=== PATIENT | female | born 1935 | race Caucasian/White ===

== ENCOUNTER 2016-11-14 22:05 | Inpatient (IN) | payer MEDICARE, OTHER ==
--- NOTE | ~2016-11-14 | DS ---
Discharge Summary [facility] [address] [place]. [address] NAME: HIEN DYER : 39 STATUS : DIS IN PAT#: [id number] AGE: 81 ADM/REG DATE : 11/15/16 MR#: [id number] REPORT SERV DATE: 11/17/16 DICTATED BY: JR. ARTEAGA WILLIAM JOHN DATE: 11/16/16 REPORT STATUS : Draft TRANSCRIBED BY: MODSoraida DATE: 11/16/16 ADMISSION DATE: 11/15/2016 DISCHARGE DATE: 11/16/2016 DISCHARGE DIAGNOSES: 1. Encephalopathy, secondary to urinary tract infection. 2. Gram-positive cocci, urinary tract infection. 3. Hypokalemia. 4. 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 5. Vascular dementia. 6. Hypertension which is poorly controlled. 7. Hypokalemia. OPERATIONS, PROCEDURES, AND TREATMENTS: 1. Urine culture which is growing gram-positive cocci. Presently, patient has a long history of Enterococcus in the past. 2. sensitive to Levaquin. 3. Chest x-ray without infiltrate. 4. CT of the brain done 11/14 which showed no acute stroke or other acute intracranial pathology. Although an acute deep white matter infarct could be obscured by chronic microvascular ischemic changes. Stable to mild advanced diffuse cerebral involutional changes. There was old stroke in the left basal ganglia. DISCHARGE MEDICATIONS: 1. Aspirin 81 mg orally daily. 2. Voltaren cream 4 times a day as needed. 3. Bumex 0.5 mg every morning. 4. Coreg 25 b.i.d. 5. Vitamin B12 1000 mcg IM every month. 6. Ferrous sulfate 325 mg orally twice a day. 7. Folate 1 mg orally daily. 8. Lactulose 60 mL twice a day. 9. Synthroid 150 mcg orally daily. 10.Losartan 50 mg orally twice a day. 11.Protonix 40 mg orally daily. 12.Paxil 40 mg orally daily. 13.Potassium chloride 20 mEq twice a day. 14.Levaquin 750 mg orally daily for 4 days. 15.Norvasc 10 mg orally daily. HOSPITAL COURSE: The patient is a 81-year-old white female who presented to [facility] Emergency Room on 11/15 with altered mental status and sedation. The patient resides at [facility]. She was visited by her daughter found to be very difficult to awaken. Eventually EMS was summoned. The patient was transported to [facility] Emergency Room. She had recently been diagnosed with hepatic encephalopathy due to ammonia of 94 diagnosed 11/02/2016 when she arrived to the emergency room. At this time, Discharge Summary [facility] [address] [facility] [place]. [address] NAME: HIEN DYER : 37 STATUS : DIS IN PAT#: [id number] AGE: 81 ADM/REG DATE : 11/15/16 MR#: [id number] REPORT SERV DATE: 11/17/16 DICTATED BY: JR. ARTEAGA WILLIAM JOHN DATE: 11/16/16 REPORT STATUS : Draft TRANSCRIBED BY: ANGELICA DATE: 11/16/16 her ammonia level was 62. In addition, the patient was found to have a urinary tract infection. For complete details of the admission history, physical, and presenting data please see Dr. Rodriguez's excellent dictated history and physical. The patient was admitted to the Clinical Decision Unit for further monitoring. Her mental status cleared quite quickly. The patient does have vascular dimension, somewhat altered at baseline. Her Wallace catheter was discontinued. Urine cultures have grown gram-positive cocci. It has been responsive to Levaquin. Therefore, we will continue the patient for a total 7 day course of Levaquin. The role of elevated ammonia in this encephalopathy is unclear to me. To my knowledge, there is not a good correlation between ammonia level and levels of consciousness. Therefore, I tend to believe the majority of the mental status changes due to urinary tract infection. In addition, the patient had hypokalemia which has been replaced, history of vascular dementia, history of chronic systolic heart failure with ejection fraction of 30-35% and hypertension which is poorly controlled. I did add Norvasc to her regimen as well as scheduled potassium. For discharge exam and laboratory, please see daily progress note. DISCHARGE DIET: Regular. ACTIVITY: As tolerated. This discharge took greater than 30 minutes for patient encounter, coordination of care, and documentation. ESTER/ANGELICA Lobo Arteaga Jr, MD / [id number] CC: Lobo Arteaga Jr, MD Gregory J. Nieckula, DO
--- NOTE | ~2016-11-14 | HP ---
History And Physical [facility] [address] [place]. [address] NAME: HIEN BECKFORD : 39 STATUS : ADM Kym PAT#: [id number] AGE: 81 ADM/REG DATE : 11/15/16 MR#: [id number] REPORT SERV DATE: 11/15/16 DICTATED BY: COLIN RODRÍGUEZ DATE: 11/14/16 REPORT STATUS : Draft TRANSCRIBED BY: MODL DATE: 11/14/16 DATE OF ADMISSION: 11/15/2016 POINT OF ENTRY: [facility] Emergency Department. CHIEF COMPLAINT: Altered mental status and sedation. HISTORY OF PRESENT ILLNESS: Ms Beckford is a 81-year-old female with history of chronic systolic congestive heart failure, ejection fraction of 35%, hypothyroidism, hypertension, as well as vascular dementia, who was brought to the emergency room today for reports of sedation, lethargy, and altered mental status. Majority of history is obtained from the patient's daughter who is at bedside. She states that when she saw the patient yesterday she was acting normally without any concerns. When she visited [facility] today, at approximately 4 p.m. she found her mother sleeping very soundly and very difficult to wake up. She first thought it was because she had physical therapy earlier in the day, but when she was informed that the patient has not had physical therapy, she became concerned. Repeated attempts to wake up her mother were unsuccessful and the EMS was activated. Upon EMS arrival, the patient started to slowly wake up and at that time was noted to be somewhat confused as well. The patient recently was diagnosed with an elevated ammonia level of 94 on 11/02/2016 through [facility] and started on lactulose. At that time family states that her symptoms mainly were confusion rather than sedation and lethargy, and this confusion has seemed to improve somewhat while on the lactulose therapy. Daughter also states a recent urinary tract infection and was placed on ciprofloxacin also about two weeks ago. Initial evaluation in the emergency department remarkable for ammonia level of 62. She does have a recurrent urinary tract infection. Although, labs were otherwise unremarkable including an ABG. CT scan of the brain was also unremarkable for any acute changes. She was subsequently to the Hospitalist Service for further evaluation and management. REVIEW OF SYSTEMS: Comprehensive review of systems otherwise negative unless listed in history of present illness. PREVIOUS MEDICAL HISTORY: 1. Chronic systolic congestive heart failure with ejection fraction of 35%. 2. Hypothyroidism. 3. Hypertension. 4. Gastroesophageal reflux disease. 5. Coronary artery disease. 6. Depression. 7. Prior history of cerebrovascular accident. 8. Vascular dementia. 9. Gout. History And Physical [place] [address] [place]. [address] NAME: HIEN BECKFORD : 39 STATUS : ADM Kym PAT#: [id number] AGE: 81 ADM/REG DATE : 11/15/16 MR#: [id number] REPORT SERV DATE: 11/15/16 DICTATED BY: COLIN RODRÍGUEZ DATE: 11/14/16 REPORT STATUS : Draft TRANSCRIBED BY: ANGELICA DATE: 11/14/16 10.Degenerative disk disease and osteoarthritis. 11.History of mesenteric ischemia requiring colectomy and colostomy with recent reversal. 12.History of right breast cancer, status post lumpectomy. 13.Prior episodes of hepatic encephalopathy of unclear etiology. 14.History of hyponatremia. SURGICAL HISTORY: 1. Colectomy with colostomy and subsequent reversal. 2. Right breast lumpectomy. 3. Back surgery. 4. Cholecystectomy. ALLERGIES: NO KNOWN DRUG ALLERGIES. HOME MEDICATIONS: 1. Tylenol 650 mg q.4 hours p.r.n. 2. Aspirin 81 mg daily. 3. Bumex 0.5 mg daily. 4. Carvedilol 25 mg b.i.d. 5. Vitamin B12 1000 mcg monthly. 6. Voltaren topical gel q.i.d. p.r.n. 7. Colace 100 mg b.i.d. 8. Ferrous sulfate 325 mg b.i.d. 9. Folic acid 1 mg daily. 10.Lactulose 40 g b.i.d. 11.Levothyroxine 150 mcg daily. 12.Losartan 50 mg b.i.d. 13.Namenda 5 mg b.i.d. this was started on 11/09/2016. 14.Zofran 4 mg q.4 hours p.r.n. 15.Protonix 40 mg daily. 16.Paxil 40 mg daily. 17.Potassium chloride 20 mEq daily. 18.Tramadol 50 mg q.6 hours p.r.n. SOCIAL HISTORY: Denies any tobacco, alcohol, or illicits. She is , now a resident of [facility]. FAMILY MEDICAL HISTORY: Significant for cancer and cerebrovascular accident. LABS AND IMAGIN. White count is 7.3, hemoglobin is 12.5, hematocrit is 39.4, and platelet count is 256. INR is 1.3. 2. Sodium is 137, potassium 2.9, chloride 94, carbon dioxide 31, BUN 8, creatinine 0.87, glucose is 103, calcium 8.4, magnesium 1.8, protein 6.7, albumin 3.1, bilirubin is 1.0, ALT 25, AST 21, alkaline phosphatase is 110. 3. Troponin less than 0.02. 4. Ammonia 62. History And Physical [address] [address] NAME: HIEN BECKFORD : 39 STATUS : ADM Kym PAT#: [id number] AGE: 81 ADM/REG DATE : 11/15/16 MR#: [id number] REPORT SERV DATE: 11/15/16 DICTATED BY: COLIN RODRÍGUEZ DATE: 11/14/16 REPORT STATUS : Draft TRANSCRIBED BY: ANGELICA DATE: 11/14/16 5. Urinalysis; specific gravity is 1.008, hazy with large leukocyte esterase, 164 red blood cells with greater than 182 white blood cells per high-powered field with many white blood cell clumps. 6. ABG; pH is 7.46, pCO2 is 43, PO2 is 77, bicarb is 30, and saturating 96% on room air. 7. CT scan of brain shows no acute cerebrovascular accident, shows stable moderate to advanced diffuse cerebral involutional changes as well as deep white matter changes as well as evidence of a stable old cerebrovascular accident. 8. EKG per my review shows septal Q-waves with normal sinus rhythm, no evidence of any acute ischemia or infarction. PHYSICAL EXAMINATION: VITAL SIGNS: Temperature is 99 degrees Fahrenheit, pulse is 86, respirations 22, saturating 96% on room air, and blood pressure 164/77. GENERAL: The patient is awake and alert, in no acute distress. Resting comfortably in bed. She is a well-developed, well-nourished, elderly female. Daughter is at bedside. HEENT: Atraumatic and normocephalic. Slightly dry mucous membranes. Pupils are equal, round, reactive to light and accommodation. Extraocular eye movements intact. No scleral icterus. NECK: No jugular venous distention. No carotid bruits. CARDIAC: Regular rate and rhythm. No murmurs or gallops. Normal S1, S2. LUNGS: Clear to auscultation bilaterally. No wheezes, rhonchi, or crackles. ABDOMEN: Soft, nontender, and nondistended with good bowel sounds. No rebound, guarding, or rigidity. EXTREMITIES: Warm and well perfused with no cyanosis, clubbing, or edema. SKIN: Warm and dry. PSYCH: Affect is appropriate. NEURO: Alert and oriented x3. Cranial nerves 2 through 12 are grossly intact. Speech is normal. Gait is not assessed. ASSESSMENT AND PLAN: Ms. Beckford is a 81-year-old female, who is brought to the ER today for acute episode of severe sedation and lethargy as well as confusion and found to have evidence of hepatic encephalopathy as well as urinary tract infection. PROBLEM LIST: 1. Hepatic encephalopathy. 2. Urinary tract infection. 3. Sedation and lethargy. 4. Hypokalemia. 5. History of chronic systolic congestive heart failure. 6. History of vascular dementia. Recently placed on Namenda. PLAN: 1. Hepatic encephalopathy. We will dose increase her lactulose in an attempt to improve her ammonia level which seems to have improved from 94 about two weeks ago. Unclear as to why she has recurrent episodes of hepatic encephalopathy as repeated abdominal imaging within just the last [address] scan of the abdomen and pelvis as well as hepatic echocardiogram have been unremarkable for evidence of any kind of liver History And Physical [address] [address] NAME: HIEN BECKFORD : 39 STATUS : ADM Kym PAT#: [id number] AGE: 81 ADM/REG DATE : 11/15/16 MR#: [id number] REPORT SERV DATE: 11/15/16 DICTATED BY: COLIN RODRÍGUEZ DATE: 11/14/16 REPORT STATUS : Draft TRANSCRIBED BY: MODSoraida DATE: 11/14/16 disease and a viral hepatitis panel done a few months ago was also unremarkable. 2. Urinary tract infection. We will place the patient on Levaquin as she has grown Enterococcus faecalis as well as Klebsiella pneumonia in the past. Follow up urine culture. 3. Sedation, lethargy, and confusion likely secondary to hepatic encephalopathy and urinary tract infection. However, we also will hold her Namenda which was recently started as confusion and sedation or a potential side effect. Also checking urine drug screen, vitamin B12 level as well as thyroid function studies. CT of the brain was unremarkable as was ABG. 4. Hypokalemia. The patient received 40 of potassium chloride here in the emergency department. We will continue patient's home potassium chloride as well as place the patient on electrolyte replacement protocol. 5. History of chronic systolic congestive heart failure, ejection fraction of 35%. The patient currently appears euvolemic to maybe slightly dry at this time. We will check a chest x-ray as well as BNP level. We will continue her Bumex at this time. 6. Vascular dementia. The patient recently diagnosed with vascular dementia and started on Namenda approximately five or six days ago given its potential side effects of sedation and confusion, we will hold this at least overnight and observe for improvement. 7. DVT prophylaxis. Lovenox subcutaneous. CODE STATUS: The patient wished to be full code. JCB/MODL Colin Rodríguez MD / [id number] CC: Lobo Arteaga Jr, MD Gregory J. Nieckula, DO
[2016-11-14 21:09] LABS: BE (BASE EXCESS) 5.6 MEQ/L (0 +/- 2.5); INSTRUMENT SERIAL # 8087; PCO2 (CO2 TENSION) 43 MMHG (35-45); PO2 (O2 TENSION) 77 MMHG (79-93); pH 7.46 (7.37-7.43)
[2016-11-14 21:10] LABS: ALLENS TEST Pos; CARBOXYHEMOGLOBIN 1.8 % (0-3); HEMOBLOGIN CONTENT 13.2 G/DL (12-16); METHEMOGLOBIN 0.3 % (0-3); O2 CONTENT 17.5 VOL% (18-24); OPERATOR ID 17589; SAMPLE Arterial
[2016-11-14 21:31] LABS: BASOPHILS ABSOLUTE 0.07 10/3/uL (0.0-0.16); EOSINOPHILS 5.2 %; EOSINOPHILS ABSOLUTE 0.38 10/3/uL (0.0-0.53); ER CBC TAT 0 Hrs 00 Mins; HEMATOCRIT 39.4 % (36.0-48.0); HEMOGLOBIN 12.5 g/dL (12.0-16.0); IMMATURE GRANULOCYTES 0.1 %; IMMATURE GRANULOCYTES ABSOLUTE 0.01 10/3/uL (0.0-0.11); LYMPHOCYTES 20.6 %; LYMPHOCYTES ABSOLUTE 1.51 10/3/uL (0.67-4.30); MEAN CORPUS HGB CONC 31.7 g/dL (32.0-36.0); MEAN CORPUSCULAR HEMOGLOB 26.1 pg (26.0-34.0); MEAN CORPUSCULAR VOLUME 82.3 fL (80-100); MEAN PLATELET VOLUME 8.5 fL (9.2-13.0); MONOCYTES 7.8 %; MONOCYTES ABSOLUTE 0.57 10/3/uL (0.21-1.20); NEUTROPHILS 65.3 %; PLATELET COUNT 256 10/3/uL (150-400); RBC DISTRIBUTION WIDTH 20.1 % (12.0-16.0); RED CELL COUNT 4.79 10/6/uL (4.0-5.6); WHITE BLOOD CELLS 7.3 10/3/uL (4.5-10.5)
[2016-11-14 21:34] LABS: MANUAL DIFF NO %
[2016-11-14 21:50] LABS: ALBUMIN 3.1 G/DL (3.5-5.0); CALCIUM, SERUM 8.4 MG/DL (8.5-10.4); CHEST PAIN PROFILE TAT 0 Hrs 00 Mins; CHLORIDE, SERUM 94 MMOL/L (96-112); CO2 (CARBON DIOXIDE) 31 MMOL/L (24-34); CREATININE 0.87 MG/DL (0.55-1.02); DIRECT BILIRUBIN 0.4 MG/DL (0.0-0.4); GFR AFRICAN AMERICAN 73 ML/MIN (>=60); GFR NON AFRICAN AMERICAN 63 ML/MIN (>=60); GLUCOSE, SERUM 103 MG/DL (60-99); INDIRECT BILIRUBIN(NOT ORDER) 0.6 MG/DL (0.1-0.9); SGOT(AST) 21 U/L (5-40); SGPT(ALT) 25 U/L (5-65); SODIUM, SERUM 137 MMOL/L (135-148); TOTAL PROTEIN 6.7 G/DL (6.0-8.5); TROPONIN I <0.02 NG/ML (<0.05)
[2016-11-14 22:00] LABS: ALKALINE PHOSPHATASE 110 U/L (45-117); BUN (BLOOD UREA NITROGEN) 8 MG/DL (6-23); POTASSIUM, SERUM 2.9 MMOL/L (3.5-5.3)
[~2016-11-14 22:05] MED LIST: AKWA TEARS OPH; ALEVE220 MG PO; ASA5GR PO; ASAB PO; ATEN50 PO; ATV.5 PO; B121000P IM; BENICAR20 PO; BENICAR40 PO; BUM1 PO; BUM5 PO; CARVEDILOL PO; COMBIVENT RESPIM4 GM INH; CONSTULOSE PO; COREG12 PO; COREG25 PO; DIL2TAB PO; EZFE 200200 MG PO; FEMARA PO; FERRETTS325 MG PO; FLONASE NAS; FOLIC PO; HYDROCHLOROT25 MG PO; KCL20UDL PO; KLONO5 PO; KLOR-CON M2020 MEQ PO; L20 PO; LEVOTHYROXIN100 MCG PO; LEVOTHYROXIN125 MCG PO; LISINOPRIL40 MG PO; MACROBID PO; METHOC500B PO; NATURAL POTASSIUM PO; NORCO1 TA1 PO; NORV10 PO; NORV25 PO; OXYCOD PO; PAX10 PO; PAX20 PO; PAXIL40 MG PO; POTASSIUM PO; POTASSIUM95 MG PO; PROAIR HFA INH; PROTONIX PO; PULRESP1 INH; REFRESH OPH SO0.3 ML OPH; SINGULAIR1 PO; SPIRO25 PO; STERAPDS12; STERAPRED5 MG; SYN1 PO; SYN112 PO; SYN125 PO; TENORETIC1 TAB PO; THERGRANM PO; ULTRACET PO; ULTRAM50 PO; XIFAXAN550 MG PO; Z-PAK PO; ZOFRAN4 PO
[2016-11-14 22:35] LABS: INTERNATIONAL NORMAL RATI 1.3 UNITS (-); PARTIAL THROMBO TIME 29.6 SEC (22.5-37.2); PROTIME (NOT ORD) 16.2 SEC (12.0-14.5)
[2016-11-14 22:47] LABS: ASCORBIC ACID (UR NOT ORDER) NEG (NEG); BILIRUBIN, URINE NEGATIVE (NEG); ER URINALYSIS TAT 0 Hrs 10 Mins; KETONE, URINE NEGATIVE (NEG); LEUKOCYTE ESTERASE(NOT OR LARGE (NEG); NITRITE (URINE) NEG (NEG)
[2016-11-14 22:48] LABS: WBC (NOT ORDERED) (RFLEX) > 182 (0-5)
[2016-11-14] MEDS ORDERED: PROTONIX PO (23:02)
[2016-11-14] MEDS ORDERED: FOLIC PO (23:02)
[2016-11-14] MEDS ORDERED: COREG25 PO (23:03)
[2016-11-14] MEDS ORDERED: BUM5 PO (23:03)
[2016-11-14] MEDS ORDERED: COZ50 PO (23:08)
[2016-11-14] MEDS ORDERED: PAXIL40 MG PO (23:09)
[2016-11-14] MEDS ORDERED: B121000P IM (23:09)
[2016-11-14] MEDS ORDERED: KDUR20 PO (23:10)
[2016-11-14] MEDS ORDERED: FERROUS SULF325 M1 PO (23:10)
[2016-11-14] MEDS ORDERED: SYN.15 PO (23:10)
[2016-11-14] MEDS ORDERED: ASAB PO ×2 (23:11→23:12)
[2016-11-14] MEDS ORDERED: VOLTAREN1 % TOP (23:11)
[2016-11-14] MEDS ORDERED: T PO (23:11)
[2016-11-14] MEDS ORDERED: DSS PO (23:12)
[2016-11-14] MEDS ORDERED: ULTRAM50 PO (23:13)
[2016-11-14] MEDS ORDERED: NAMENDA5 PO ×2 (23:13→23:14)
[2016-11-14] MEDS ORDERED: ZOFRAN4 PO (23:13)
[2016-11-14] MEDS ORDERED: CONSTULOSE PO (23:14)
[2016-11-15 05:42] LABS: BASOPHILS ABSOLUTE 0.09 10/3/uL (0.0-0.16); EOSINOPHILS ABSOLUTE 0.35 10/3/uL (0.0-0.53); HEMATOCRIT 41.6 % (36.0-48.0); HEMOGLOBIN 13.1 g/dL (12.0-16.0); IMMATURE GRANULOCYTES 0.1 %; IMMATURE GRANULOCYTES ABSOLUTE 0.01 10/3/uL (0.0-0.11); LYMPHOCYTES 17.3 %; LYMPHOCYTES ABSOLUTE 1.51 10/3/uL (0.67-4.30); MEAN CORPUS HGB CONC 31.5 g/dL (32.0-36.0); MEAN CORPUSCULAR HEMOGLOB 26.5 pg (26.0-34.0); MEAN PLATELET VOLUME 9.1 fL (9.2-13.0); MONOCYTES 8.7 %; MONOCYTES ABSOLUTE 0.76 10/3/uL (0.21-1.20); NEUTROPHILS 68.9 %; NEUTROPHILS ABSOLUTE 6.01 10/3/uL (2.02-8.40); PLATELET COUNT 271 10/3/uL (150-400); RBC DISTRIBUTION WIDTH 19.9 % (12.0-16.0); RED CELL COUNT 4.95 10/6/uL (4.0-5.6); WHITE BLOOD CELLS 8.7 10/3/uL (4.5-10.5)
[2016-11-15 05:48] LABS: MANUAL DIFF NO %
[2016-11-15 06:55] LABS: BUN (BLOOD UREA NITROGEN) 9 MG/DL (6-23); CHLORIDE, SERUM 95 MMOL/L (96-112); CO2 (CARBON DIOXIDE) 31 MMOL/L (24-34); CREATININE 0.92 MG/DL (0.55-1.02); FREE T4 1.17 NG/DL (0.76-1.46); GFR AFRICAN AMERICAN 69 ML/MIN (>=60); GFR NON AFRICAN AMERICAN 59 ML/MIN (>=60); GLUCOSE, SERUM 104 MG/DL (60-99); SODIUM, SERUM 138 MMOL/L (135-148)
[2016-11-15 06:56] LABS: FOLATE 40.4 NG/ML (>5.2); POTASSIUM, SERUM 3.5 MMOL/L (3.5-5.3)
[2016-11-15 08:02] LABS: PROCALCITONIN <0.05 ng/mL (<0.5)
[2016-11-16 05:03] LABS: BUN (BLOOD UREA NITROGEN) 11 MG/DL (6-23); CHLORIDE, SERUM 97 MMOL/L (96-112); CO2 (CARBON DIOXIDE) 28 MMOL/L (24-34); CREATININE 0.98 MG/DL (0.55-1.02); GFR AFRICAN AMERICAN 64 ML/MIN (>=60); GFR NON AFRICAN AMERICAN 55 ML/MIN (>=60); GLUCOSE, SERUM 103 MG/DL (60-99); POTASSIUM, SERUM 3.4 MMOL/L (3.5-5.3); SODIUM, SERUM 138 MMOL/L (135-148)
== END 2016-11-16 17:40 | DRG 689 ==
LOC: ER 22:05 → CDU1 11-15 01:07 → CDU2 11-15 01:27
PROVIDERS: Emergency Medicine; Internal Medicine
DX: N39.0 Urinary tract infection, site not specified (principal); G93.41 Metabolic encephalopathy; I50.42 Chronic combined systolic (congestive) and diastolic (congestive) heart failure; F01.50 Vascular dementia, unspecified severity, without behavioral disturbance, psychotic disturbance, mood disturbance, and anxiety; I11.0 Hypertensive heart disease with heart failure; E87.6 Hypokalemia; B95.2 Enterococcus as the cause of diseases classified elsewhere; K21.9 Gastro-esophageal reflux disease without esophagitis; Z86.73 Personal history of transient ischemic attack (TIA), and cerebral infarction without residual deficits
CPT/HCPCS: 36600; 70450; 71020; 80048; 80076; 81001; 82140; 82607; 82746; 82805; 83735; 83880; 84145; 84439; 84443; 84484; 85025; 85610; 85730; 87077; 87086; 87186; 87493; 87493-59; 93005; 96374; 99285; A9270-GY; J1956